=== PATIENT | female | born 1980 | race American Indian/Alaskan Native ===

== ENCOUNTER 2017-11-10 16:42 | Emergency (ER) | payer MEDICARE ==
[2017-11-10 16:55] VITALS: BP 101/64
[2017-11-10 18:21] LABS: Basophils # (Auto) 0.1 K/mm3 (0.0-0.1); Basophils % (Auto) 0.6 % (0.0-1.8); Eosinophils % (Auto) 0.5 % (0.0-4.3); Hematocrit 35.9 % (30.3-42.9); Hemoglobin 11.3 gm/dl (10.1-14.3); Lymphocytes # (Auto) 1.2 K/mm3 (1.2-5.4); Lymphocytes % (Auto) 13.3 % (13.4-35.0); Mean Corpuscular HGB Conc 32 % (30-34); Mean Corpuscular Hemoglobin 29 pg (28-32); Mean Corpuscular Volume 91 fl (79-97); Monocytes # (Auto) 0.7 K/mm3 (0.0-0.8); Monocytes % (Auto) 8.2 % (0.0-7.3); Platelet Count 317 K/mm3 (140-440); Red Blood Count 3.95 M/mm3 (3.65-5.03); Red Cell Distribution Width 13.5 % (13.2-15.2)
[2017-11-10] MEDS ORDERED: TYLENOL ONE (18:50)
[2017-11-10 18:51] LABS: BUN/Creatinine Ratio 18; Blood Urea Nitrogen 11 mg/dL (7-17); Calcium 9.5 mg/dL (8.4-10.2); Hemolysis Index 4
[2017-11-10] MEDS ORDERED: TYLENOL PO ONE (18:52)
--- NOTE | 2017-11-10 19:09 | XRay Report ---
FINAL REPORT EXAM: XR CHEST ROUTINE 2V HISTORY: Shortness of breath, Chest pain, dizziness TECHNIQUE: Frontal and lateral chest x-ray. PRIORS: None. FINDINGS: Cardiac and mediastinal silhouette within normal limits. Lungs are normally expanded, without significant vascular congestion. No focal consolidation, pleural effusion or apparent pneumothorax. Bony thorax grossly unremarkable. IMPRESSION: 1. No acute findings.
--- NOTE | 2017-11-10 20:27 | Emergency Department Report ---
ED Chest Pain HPI - General Chief Complaint: Dyspnea/Respdistress Stated Complaint: SOB Time Seen by Provider: 11/10/17 20:13 Source: patient, RN notes reviewed Mode of arrival: Ambulatory Limitations: No Limitations - History of Present Illness Initial Comments: This is a 37-year-old female who was previously unknown to this provider. She has a primary care doctor, and thinks that her provide his name is Amanjean She reports a past medical history of asthma and allergies. She indicates that she is not , and indicates she is not given within the past 2 months. She also stated that she does not take oral contraceptives. The patient presents to the ER with a complaint of left-sided breast pain, central chest pain, facial fullness, lower back pain. Left-sided breast pain has been present for 3-4 weeks. She was seen by an outpatient [facility] doctor, and referred to an outpatient test which she has not followed up for. Her central chest pain started at 2:00 this afternoon. It radiates to the epigastric and right upper quadrant region. He does not have exacerbating or relieving factors. The patient is described as achy and sharp in nature. There is no leg pain. There is no leg swelling. Patient reports multiple airplane trips within the past month, to [place] and to [place]. She denies irritative and obstructive urinary symptoms. She denies cocaine use. She denies recent aspirin use. Patient denies oral contraceptive use. The patient also complains of facial fullness and subjective feeling like her face is swollen. She cannot describe exacerbating or relieving factors for this. MD Complaint: chest pain -: Gradual Onset: during rest Pain Location: substernal, left chest, other Pain Radiation: abdomen Severity: moderate Severity scale (0 -10): 9 Quality: aching Consistency: intermittent Improves With: rest Worsens With: palpation Context: recent travel re: dyspnea. denies: nausea, vomting, diaphoresis Other Symptoms: denies: cough, fever, syncope Treatments Prior to Arrival: none Aspirin use within the Past 7 Days: (0) No - Related Data On Oral Contraceptives: No Allergies Allergy/AdvReac Type Severity Reaction Status Date / Time venlafaxine [From Effexor] AdvReac Swelling Verified 11/10/17 16:49 Heart Score - HEART Score History: Slightly suspicious EKG: Normal Age: < 45 Risk factors: No known risk factors Troponin: < normal limit HEART Score: 0 - Critical Actions Critical Actions: 0-3 pts:0.9-1.7%risk of adverse cardiac event.Candidate for discharge ED Review of Systems ROS: Stated complaint: SOB Other details as noted in HPI Constitutional: malaise. denies: fever Eyes: denies: vision change ENT: denies: epistaxis Respiratory: cough, shortness of breath Cardiovascular: chest pain Gastrointestinal: abdominal pain Genitourinary: denies: dysuria Musculoskeletal: back pain Neurological: headache Psychiatric: anxiety ED Past Medical Hx - Past Medical History Hx Asthma: Yes - Surgical History Past Surgical History?: No - Social History Smoking Status: Current Every Day Smoker Substance Use Type: Alcohol ED Physical Exam - General Limitations: No Limitations General appearance: alert, in no apparent distress - Head Head exam: Present: atraumatic, normocephalic - Eye Eye exam: Present: normal appearance, EOMI. Absent: nystagmus - ENT ENT exam: Present: normal exam, normal orophraynx, mucous membranes moist, normal external ear exam - Neck Neck exam: Present: normal inspection, full ROM - Respiratory Respiratory exam: Present: normal lung sounds bilaterally, chest wall tenderness , other (there is reproducible chest wall tenderness. There is no breast redness, pus, streaking, erythema. During breast examination, chaperoned by Matthias Rao). Absent: respiratory distress, wheezes, rales, rhonchi, stridor, prolonged expiratory - Cardiovascular Cardiovascular Exam: Present: regular rate, normal rhythm, normal heart sounds. Absent: bradycardia, tachycardia, irregular rhythm, systolic murmur, diastolic murmur, rubs, gallop - GI/Abdominal GI/Abdominal exam: Present: soft, normal bowel sounds. Absent: distended, tenderness, guarding, rebound, rigid - Extremities Exam Extremities exam: Present: normal inspection, full ROM, normal capillary refill , other (there is no palpable cord. This is negative Homans sign). Absent: tenderness, pedal edema, joint swelling, calf tenderness - Back Exam Back exam: Present: normal inspection, full ROM, paraspinal tenderness. Absent : tenderness, CVA tenderness (R), vertebral tenderness - Neurological Exam Neurological exam: Present: alert, oriented X3, CN II-XII intact, normal gait, other (Extraocular movements intact. Tongue midline. No facial droop. Facial sensation intact to light touch in the V1, V2, V3 distribution bilaterally. 5 and 5 strength in 4 extremities.. Sensation is intact to light touch in 4 extremities.). Absent: motor sensory deficit - Psychiatric Psychiatric exam: Present: normal affect, normal mood - Skin Skin exam: Present: warm, dry, intact, normal color. Absent: rash ED Course Vital Signs 11/10/17 16:50 Temperature 98.2 F Pulse Rate 109 H Respiratory 18 Rate Blood Pressure 101/64 O2 Sat by Pulse 99 Oximetry - Reevaluation(s) Reevaluation #1: 11/10/17 20:59 Differential diagnosis, including the not limited to: Costochondritis, pneumonia , pulmonary embolus, GERD, gastritis, hiatal hernia, urinary tract infection, anxiety, conversion disorder Assessment and plan: 37-year-old female with a primary complaint of central chest wall pain, secondary complaints of left-sided breast pain, facial pain, sensation of facial swelling, and reproducible muscular back pain. The patient is afebrile with reassuring vital signs, clinically sober, has a GCS of 15, with an NIH score of 0. The patient is low risk by MARTIN score, heart score, Wells criteria. Given recent reported trips to multiple studies, d-dimer will be added. Her tachycardia has resolved. I recommended serial EKGs, serial troponin, d-dimer, and additional laboratory studies. I informed the patient that objectively speaking her facial exam appeared to be within normal limits. During my examination the patient is alert and oriented 3, exhibits decision- making capacity and is free from distracting injury. Nursing staff informed me that the patient eloped during her ER stay. MARTIN score - Martin Score Age > 65: (0) No Aspirin use within the Past 7 Days: (0) No 3 or more CAD Risk Factors: (0) No 2 or more Angina events in past 24 hrs: (0) No Known CAD with more than 50% Stenosis: (0) No Elevated Cardiac Markers: (0) No ST Deviation Greater than 0.5mm: (0) No MARTIN Score: 0 ED Medical Decision Making - Lab Data Result diagrams: 11/10/17 18:13 11/10/17 18:13 Vital Signs 11/10/17 16:50 Temperature 98.2 F Pulse Rate 109 H Respiratory 18 Rate Blood Pressure 101/64 O2 Sat by Pulse 99 Oximetry Lab Results 11/10/17 11/10/17 Range/Units 18:13 18:13 WBC 9.0 (4.5-11.0) K/mm3 RBC 3.95 (3.65-5.03) M/mm3 Hgb 11.3 (10.1-14.3) gm/dl Hct 35.9 (30.3-42.9) % MCV 91 (79-97) fl MCH 29 (28-32) pg MCHC 32 (30-34) % RDW 13.5 (13.2-15.2) % Plt Count 317 (140-440) K/mm3 Lymph % (Auto) 13.3 L (13.4-35.0) % [place] % (Auto) 8.2 H (0.0-7.3) % Eos % (Auto) 0.5 (0.0-4.3) % Baso % (Auto) 0.6 (0.0-1.8) % Lymph # 1.2 (1.2-5.4) K/mm3 [place] # 0.7 (0.0-0.8) K/mm3 Eos # 0.0 (0.0-0.4) K/mm3 Baso # 0.1 (0.0-0.1) K/mm3 Seg Neutrophils % 77.4 H (40.0-70.0) % Seg Neutrophils # 7.0 (1.8-7.7) K/mm3 Sodium 139 (137-145) mmol/L Potassium 4.0 (3.6-5.0) mmol/L Chloride 101.0 (98-107) mmol/L Carbon Dioxide 27 (22-30) mmol/L Anion Gap 15 mmol/L BUN 11 (7-17) mg/dL Creatinine 0.6 L (0.7-1.2) mg/dL Estimated GFR > 60 ml/min BUN/Creatinine Ratio 18 % Glucose 89 (65-100) mg/dL Calcium 9.5 (8.4-10.2) mg/dL - EKG Data -: EKG Interpreted by In EKG shows normal: sinus rhythm, axis, intervals, QRS complexes, ST-T waves - EKG Data When compared to previous EKG there are: previous EKG unavailable 11/10/17 20:58 Normal sinus, 86 bpm, normal intervals, normal axis, not morphologically consistent w stemi - Radiology Data Radiology results: report reviewed, image reviewed X-ray of the chest is negative for acute disease Critical care attestation.: If time is entered above; I have spent that time in minutes in the direct care of this critically ill patient, excluding procedure time. ED Disposition Clinical Impression: Chest wall pain Disposition: ELOPED Is pt being admited?: No Does the pt Need Aspirin: No Condition: Undetermined Instructions: Chest Pain (ED) Referrals: PRIMARY CARE, [Primary Care Provider] - 3-5 Days
--- NOTE | 2017-11-10 21:01 | ED Elopement Review ---
ED Pt Elopement review - Results review Lab results: Laboratory Tests 11/10/17 11/10/17 18:13 18:13 WBC 9.0 RBC 3.95 Hgb 11.3 Hct 35.9 MCV 91 MCH 29 MCHC 32 RDW 13.5 Plt Count 317 Lymph % (Auto) 13.3 L [place] % (Auto) 8.2 H Eos % (Auto) 0.5 Baso % (Auto) 0.6 Lymph # 1.2 [place] # 0.7 Eos # 0.0 Baso # 0.1 Seg Neutrophils % 77.4 H Seg Neutrophils # 7.0 Sodium 139 Potassium 4.0 Chloride 101.0 Carbon Dioxide 27 Anion Gap 15 BUN 11 Creatinine 0.6 L Estimated GFR > 60 BUN/Creatinine Ratio 18 Glucose 89 Calcium 9.5 - Call Back decision Pt Call Back Decision: Call pt to return to ED Y[facility] (please call patient to return back to the ER immediately to complete her evaluation)
== END 2017-11-10 21:10 | disposition left against medical advice (07) ==
LOC: ED 16:42
DX: R07.89 Other chest pain (principal); F17.200 Nicotine dependence, unspecified, uncomplicated; Z88.8 Allergy status to other drugs, medicaments and biological substances
CPT/HCPCS: 36415; 71046; 80048; 84484; 85025; 93005; 93010; 99283